=== PATIENT | male | born 1995 | race Caucasian/White ===

== ENCOUNTER 2017-07-19 15:17 | Emergency (ER) | payer BC ==
--- NOTE | 2017-07-19 18:26 | EDPHY ---
H & P Stated Complaint: baCKpain Time Seen by Provider: 07/19/17 18:13 HPI/ROS: Chief Complaint: Back pain, neck pain, glass in feet HPI: 21-year-old male presenting complaining of back pain and right hip pain. Patient states he started having pain after he went skiing last Tuesday. He woke up morning with some discomfort but decided to get go skiing that day. He has since been having persistent aching pain. He has not been taking any ibuprofen or Tylenol. He states he does not like to take these because ibuprofen sometimes upsets his stomach any does not like taking it with food. He also states uses argument with his girlfriend last night. He states that the vertigo lasting stepped on some broken glass then. He pulse of broken glass out of his foot wants evaluation for this. Denies any falls or head injuries. No loss of consciousness. No nausea or vomiting. No abdominal pain. No fevers or chills. No numbness or weakness. He is ambulating without any difficulty. He is requesting narcotic pain medication for his symptoms. ROS: 10 point Review of Systems is negative except as noted in the HPI. PMH: Denies Social History: Positive smoking, occasional alcohol, denies marijuana Family History: non-contributory Physical Exam: Gen: Awake, Alert, No Distress HEENT: Nose: no rhinorrhea Eyes: PERRLA, EOMI Mouth: Moist mucosa Neck: Supple, no JVD Chest: nontender, lungs clear to auscultation Heart: S1, S2 normal, no murmur Abd: Soft, non-tender, no guarding Back: no CVA tenderness, no midline tenderness mild small abrasions on his left upper back. Ext: no edema, non-tender, he has got very superficial abrasions on the sole of his left foot. There is no foreign body. No deep tissue involvement. There is nontender. There is no surrounding erythema. Skin: no rash Neuro: CN II-XII intact, Sensation grossly intact, Strength 5/5 in bilateral upper and lower extremities - Personal History Current Tetanus/Diphtheria Vaccine: Yes Current Tetanus Diphtheria and Acellular Pertussis (TDAP): Yes - Medical/Surgical History Hx Asthma: No Hx Chronic Respiratory Disease: No Hx Diabetes: No Hx Cardiac Disease: No Hx Renal Disease: No Hx Cirrhosis: No Hx Alcoholism: No Hx HIV/AIDS: No Hx Splenectomy or Spleen Trauma: No Other PMH: tonsilectomy, - Social History Smoking Status: Current some day smoker Constitutional: Initial Vital Signs Temperature (C) 36.3 C 07/19/17 15:23 Heart Rate 110 H 07/19/17 15:23 Respiratory Rate 16 07/19/17 15:23 Blood Pressure 117/61 07/19/17 15:23 O2 Sat (%) 95 07/19/17 15:23 O2 Delivery Mode Room Air Allergies/Adverse Reactions: No Known Allergies Allergy (Unverified 07/19/17 15:22) Home Medications: Medication Instructions Recorded NK [No Known Home Meds] 07/19/17 Medical Decision Making ED Course/Re-evaluation: 21-year-old male presenting with 1 week of back pain and aching after skiing. Is also complaining of some abrasions to his feet. He is requesting pain medication here. He has not been taking any ibuprofen or Tylenol because he "does not like them ". He would like something stronger. I have told him that the first-line treatment for back pain is anti-inflammatory medications in exercise. He is not happy with this. I have told him that I am not wanting to give him any narcotics at this time. Will discharge with back pain instructions , alternating ibuprofen and acetaminophen. He does not have any contraindications either of these medications or allergies. Departure - Departure Disposition: Home, Routine, Self-Care Clinical Impression: Back pain Condition: Good Instructions: Back Pain (ED), Lower Back Exercises (ED) Additional Instructions: Take ibuprofen, 600 mg, 3 times a day. You may also take acetaminophen, 1000 mg every 6 hours. Make sure to remain active. Did do not lay in bed or sit in a chair for long periods. It is important to remain active and keep your back moving in order to improve. Please see the attached back exercise instructions. Follow up with primary care physician in 3-4 days if symptoms are not improving. Referrals: Chaim Nath DO [Doctor of Osteopathy] - As per Instructions
[2017-07-19 18:39] VITALS: BP 112/69; PULSE 78; RESP 18; TEMP 98.6; O2SAT 96
== END 2017-07-19 18:47 | disposition home or self-care (01) ==
DX: M54.9 Dorsalgia, unspecified (principal); F17.200 Nicotine dependence, unspecified, uncomplicated